=== PATIENT | female | born 1975 | race African-American/Black ===

== ENCOUNTER 2024-06-10 01:05 | Emergency (ER) | payer OTHER ==
[~2024-06-10] VITALS: Ht 157.5 cm; Wt 68.0 kg
[2024-06-10 01:13] VITALS: TEMP 98
[2024-06-10] MEDS ORDERED: CYCLOBENZAPRINE 10 MG TABLET ONE (01:29)
[2024-06-10] MEDS ORDERED: ACETAMINOPHEN ES 500 MG TABLET ONE (01:29)
[2024-06-10] MEDS: ACETAMINOPHEN ES 500 MG TABLET PO ONE (01:30)
[2024-06-10] MEDS: CYCLOBENZAPRINE 10 MG TABLET PO ONE (01:30)
[2024-06-10 03:02] VITALS: BP 142/84; O2SAT 97
== END 2024-06-10 03:56 | disposition home or self-care (01) ==
LOC: ER 01:10
DX: Z04.1 Encounter for examination and observation following transport accident (principal); Z98.890 Other specified postprocedural states
CPT/HCPCS: 70450-TC; 72100-TC